=== PATIENT | female | born 1975 | race Caucasian/White ===

== ENCOUNTER 2018-05-24 12:58 | Emergency (ER) | payer BC ==
[~2018-05-24] VITALS: Ht 177.8 cm; Wt 101.6 kg
[~2018-05-24 12:58] MED LIST: ACEBUTCAFT PO; ACET325 PO; ALBU3IS INH; ALBU4; ALBU90OI; ALBU90OI61 INH; ALBUIS INH; ATEN25; ATEN25 PO; ATEN50; AZIT250 PO; Accuneb1.25 MG/3 INH; BENZ100A; BENZ100A PO; BUDE.5 INH; BUDE6HFA; BUDE6HFA PO; Bacid1 EACH PO; CEFD300 PO; CITA20 PO; CLON1 PO; CLOT10 SS; DEXA4 PO; DIFICID200 MG PO; DULERA 200 MCG/13 GM INH; ESOM20 PO; FEXO180 PO; FEXO60 PO; FOLI1 PO; Flector1 EACH; HYDCHLSU; HYDCHLSU PO; HYDMOR2; HYDMOR2 PO; HYDMOR4 PO; HYDSUL200 PO; LEVFLO500; LEVFLO500 PO; LITH300C; LITH300C PO; LORA1 PO; MELA3 PO; MELO7.5; META800 PO; METR500 PO; METTREX2.5 PO; MONT10T PO; MONT5TCH PO; Melatonin5 M1 PO; NAPR500 PO; NEBI5 PO; OMEP40CA12 PO; ONDA4 PO; ONDA4ODT MM; OXYACE5T PO; OXYC5 PO; Oxycodone-Apap1 EAC3; PRED10 PO; PRED20; PRED20 PO; PRED5 PO; PROM25 PO; Percocet 5-3251 EACH PO; Prednisone20 MG PO; Q-Tussin100 MG/5 M PO; RANI150 PO; RIFA300 PO; RXOXYACE PO; RXPROM25 PO; SACC250C PO; SERT20L; SERT25 PO; SODCHL.65S; SUCR1; SUCR1 PO; SUCR1SU PO; TOPI50 PO; TRAM50; TUSSIONEX PO; VANC125 PO; VANCOCIN HCL250 MG PO; Vancocin HCL1000 M1 IV; Vancomycin HCl500 MG IV; XARELTO10 MG PO; XELJANZ PO; Zofran Odt4 MG SL; Zofran4 MG PO; [UNRECOGNIZED DRUG - REMARK]
[2018-05-24 13:47] LABS: BASOPHILS ABSOLUTE AUTO 0.03 K/mm3 (0.00-0.23); BASOPHILS PERCENT AUTO 1 % (0-2); EOSINOPHILS ABSOLUTE AUTO 0.06 K/mm3 (0.00-0.68); EOSINOPHILS PERCENT AUTO 1 % (0-6); Hematocrit 46.6 % (33.0-51.0); Hemoglobin 15.7 g/dL (11.5-16.0); IMMATURE GRAN PERCENT AUTO 0 % (0-1); LYMPHOCYTES ABSOLUTE AUTO 2.14 K/mm3 (0.84-5.20); LYMPHOCYTES PERCENT AUTO 36 % (21-46); MONOCYTES ABSOLUTE AUTO 0.55 K/mm3 (0.16-1.47); MONOCYTES PERCENT AUTO 9 % (4-13); Mean Corpuscular HGB 31.6 pg (26.0-34.0); Mean Corpuscular HGB Conc 33.7 g/dL (31.5-36.5); Mean Corpuscular Volume 94 fL (80-100); Mean Platelet Volume 9.6 fL (9.1-12.4); NEUTROPHILS ABSOLUTE AUTO 3.18 K/mm3 (1.96-9.15); NEUTROPHILS PERCENT AUTO 53 % (41-73); Platelet Count 262 K/mm3 (150-400); RDW Coefficient Variation 11.7 % (11.7-14.2); RDW Standard Deviation 40.4 fL (35.1-46.3); Red Blood Cell Count 4.97 M/mm3 (3.80-5.20); White Blood Cell Count 5.96 K/mm3 (4.00-11.30)
[2018-05-24 14:00] LABS: Alanine Aminotransfer (ALT/SGP 19 U/L (12-78); Albumin, Blood 4.2 g/dL (3.4-5.0); Albumin/Globulin Ratio 1.2 (0.8-1.8); Alk Phos 76 U/L (50-136); Anion Gap 6 mmol/L (6-16); Aspartate Aminotrans (AST/SGOT 19 U/L (12-37); Bilirubin, Total 0.7 mg/dL (0.1-1.0); Blood Urea Nitrogen 13 mg/dL (8-24); Bun/Creatinine Ratio 15.4 (12.0-20.0); CO2, Blood 24 mmol/L (21-32); Calcium, Blood 8.9 mg/dL (8.5-10.1); Chloride, Blood 108 mmol/L (98-108); Creatinine, Blood 0.84 mg/dL (0.40-1.00); Globulin, Blood 3.5 g/dL (2.2-4.0); Glomerular Filtration Rate >60 (60-); Glucose, Blood 89 mg/dL (70-99); Potassium, Blood 3.9 mmol/L (3.5-5.5); Sodium, Blood 138 mmol/L (136-145); Total Protein, Blood 7.7 g/dL (6.4-8.2)
[2018-05-24] MEDS ORDERED: ONDA4ODT MM (16:25)
[2018-05-24] MEDS ORDERED: VIIBRYD40 MG PO (16:25)
[2018-05-24] MEDS ORDERED: Norco 5-325 Ta1 EACH PO (17:19)
[2018-05-24] MEDS ORDERED: Flagyl500 MG PO (17:19)
== END 2018-05-24 17:33 | disposition home or self-care (01) ==
LOC: ER 12:58
PROVIDERS: Physician Assistant
DX: K52.9 Noninfective gastroenteritis and colitis, unspecified (principal); Z79.899 Other long term (current) drug therapy
CPT/HCPCS: 36415; 74176; 80053; 83605; 85025; 93005; 93010; 96361; 96374; 96375; 96376; 99284-25; J2405; J3010; J7030

== ENCOUNTER → 2018-05-27 | Outpatient (CLI) | payer BC ==
[~2018-05-27] MED LIST changes: +Flagyl500 MG PO; +Norco 5-325 Ta1 EACH PO; +VIIBRYD40 MG PO
[2018-05-28 10:52] LABS: Adenovirus F 40/41 Not Detected (NOT DETECT); Astrovirus Not Detected (NOT DETECT); Campylobacter Sp Not Detected (NOT DETECT); Cryptosporidium Not Detected (NOT DETECT); Cyclospora Cayetanensis Not Detected (NOT DETECT); E. Coli O157 Not Detected (NOT DETECT); Entamoeba Histolytica Not Detected (NOT DETECT); Enteroaggregative E. coli-EAEC Not Detected (NOT DETECT); Enteropathogenic E. coli-EPEC Not Detected (NOT DETECT); Enterotoxigenic E. coli-ETEC Not Detected (NOT DETECT); Giardia Lamblia Not Detected (NOT DETECT); Norovirus GI/GII Not Detected (NOT DETECT); Plesiomonas Shigelloides Not Detected (NOT DETECT); Rotavirus A Not Detected (NOT DETECT); Salmonella Sp Not Detected (NOT DETECT); Sapovirus Not Detected (NOT DETECT); Shiga Toxin-prod E. coli-STEC Not Detected (NOT DETECT); Shigella/Enteroin E. coli-EIEC Not Detected (NOT DETECT); Vibrio Cholerae Not Detected (NOT DETECT); Vibrio Sp Not Detected (NOT DETECT); Yersinia Enterocolitica Not Detected (NOT DETECT)
== END | disposition home or self-care (01) ==
LOC: LAB SHORT 07:00 → LAB 07:00
PROVIDERS: Physician Assistant
DX: K52.9 Noninfective gastroenteritis and colitis, unspecified (principal)
CPT/HCPCS: 87507

== ENCOUNTER 2018-06-10 04:28 | Emergency (ER) | payer OTHER, BC ==
[~2018-06-10] VITALS: Ht 177.8 cm; Wt 99.8 kg
== END 2018-06-10 06:00 | disposition home or self-care (01) ==
LOC: ER 04:28
DX: M75.42 Impingement syndrome of left shoulder (principal); Z91.018 Allergy to other foods; Z88.6 Allergy status to analgesic agent; Z88.8 Allergy status to other drugs, medicaments and biological substances; Z88.0 Allergy status to penicillin; Z79.899 Other long term (current) drug therapy; W18.30XA Fall on same level, unspecified, initial encounter; Y99.0 Civilian activity done for income or pay
CPT/HCPCS: 73030; 96374; 99283-25; J2405; J3010

== ENCOUNTER → 2019-03-06 | Outpatient (CLI) | payer BC ==
[2019-03-07 10:40] LABS: Candida species (DNA Probe) Negative (NEGATIVE); G. vaginalis (DNA Probe) Negative (NEGATIVE); T. vaginalis (DNA Probe) Negative (NEGATIVE)
== END | disposition home or self-care (01) ==
LOC: LAB SHORT 14:30 → LAB 14:30
PROVIDERS: Obstetrics & Gynecology
DX: N76.0 Acute vaginitis (principal)
CPT/HCPCS: 87480; 87510; 87660

== ENCOUNTER 2023-07-07 07:35 | Day surgery (SDC) | payer BC ==
[~2023-07-07] VITALS: Ht 177.8 cm; Wt 92.2 kg
[~2023-07-07 07:35] MED LIST changes: +ALBU90OI INH; +FLUT.05NI; +Ropivacaine 0.5% HCl/Pf 5 MG/ML 20ML VIAL ONE; +XYZAL5 MG PO
[2023-07-07] MEDS ORDERED: FentaNYL Citrate 50 MCG/ML 2 ML Injection ONE ×2 (08:13→10:34)
[2023-07-07] MEDS ORDERED: propofoL 20 ML IV ONE (08:13)
[2023-07-07] MEDS ORDERED: Percocet 5-3251 EACH (08:29)
[2023-07-07] MEDS ORDERED: Acetaminophen 500 MG Tab ONE (08:44)
[2023-07-07] MEDS ORDERED: Midazolam HCl 1MG / ML 2ML Vial ONE (08:44)
[2023-07-07] MEDS ORDERED: CeFAZolin Sodium 2,000 MG VIAL ONE (08:44)
[2023-07-07] MEDS ORDERED: Lactated Ringer's 1,000 ML IV ONE ×2 (08:45→08:59)
[2023-07-07] MEDS ORDERED: NS 50 ML IV ONE (08:45)
[2023-07-07] MEDS ORDERED: Albuterol HFA200 ACT/6.7 GM INH ONE (09:18)
[2023-07-07] MEDS ORDERED: Ketorolac Tromethamine 30mg Vial ONE ×2 (09:33→09:38)
[2023-07-07] MEDS ORDERED: EPINEPhrine HCl 1 MG/ML 1ML Amp XX ONE (09:33)
[2023-07-07] MEDS ORDERED: Ondansetron HCl 2 MG / ML 2ML Vial ONE (09:38)
[2023-07-07] MEDS ORDERED: Dexamethasone Sod Phos 10 MG/ML 1ML VIAL ONE (09:38)
[2023-07-07] MEDS ORDERED: HYDROmorphone HCl/Pf 1MG SYR ONE (10:47)
[2023-07-07 11:37] VITALS: BP 99/70
== END 2023-07-07 11:47 | disposition home or self-care (01) ==
LOC: ORSCSDS 07:35
PROVIDERS: Podiatrist Foot & Ankle Surgery
PROC: 01NG0ZZ Release Tibial Nerve, Open Approach (ICD-10-PCS; principal; 2023-07-07 09:15)
PROC: 0KNV0ZZ Release Right Foot Muscle, Open Approach (ICD-10-PCS; principal; 2023-07-07 09:15)
DX: M72.2 Plantar fascial fibromatosis (principal); G57.51 Tarsal tunnel syndrome, right lower limb; J45.909 Unspecified asthma, uncomplicated; Z79.899 Other long term (current) drug therapy; E66.9 Obesity, unspecified; Z68.32 Body mass index [BMI] 32.0-32.9, adult
CPT/HCPCS: 88305; A9270; J0171; J0690; J1100; J1170; J1885; J2250; J2405; J2704; J2795; J3010; J7120